=== PATIENT | male | born 1970 | race Caucasian/White ===

== ENCOUNTER 2024-10-03 19:14 | Observation (INO) ==
[2024-10-03 19:50] LABS: Hematocrit (blood only) 39.5 % (42.0-52.0); Hemoglobin 13.2 g/dl (14.0-18.0); Mean Corpuscular Hgb Conc 33.4 g/dL (32.0-36.0); Mean Corpuscular Volume 89.8 fL (80.0-100.0); Platelet Count 106 K/uL (130-400); RDW Coefficient of Variation 11.7 % (11.5-14.5); RDW Standard Deviation 38.3 fL (36.4-46.3)
[2024-10-03 20:05] LABS: Basophils # (auto) 0.01 K/uL (0.00-0.20); Basophils % (auto) 0.1 %; Eosinophils # (auto) 0.01 K/uL (0.00-0.50); Eosinophils % (auto) 0.1 %; Immature Granulocytes # (auto) 0.02 K/uL (0.01-0.20); Immature Granulocytes % (auto) 0.3 %; Lymphocytes # (auto) 0.32 K/uL (1.20-3.40); Lymphocytes % (auto) 4.4 %; Monocytes # (auto) 0.39 K/uL (0.11-0.59); Monocytes % (auto) 5.3 %; Neutrophils # (auto) 6.55 K/uL (1.40-6.50); Neutrophils % (auto) 89.8 %
[2024-10-03 20:07] LABS: Albumin Globulin Ratio 1.2 (0.9-2); Albumin Level 4.2 gm/dl (3.4-5.0); BUN Creatinine Ratio 9.5 (10-20); Bilirubin,Total 0.8 mg/dl (0.2-1.0); Calcium 9.1 mg/dl (8.6-10.3); Creatinine Clr Calc Pharmacy 90.9 ml/min; Globulin 3.5 gm/dl (2.5-4.0); Potassium 3.9 mmol/L (3.5-5.1); Total Protein 7.7 gm/dl (6.0-8.3)
[2024-10-03 20:30] LABS: Adenovirus PCR Not Detected (NotDetected); Bordetella parapertussis PCR Not Detected (NotDetected); Bordetella pertussis PCR Not Detected (NotDetected); Chlamydia pneumoniae PCR Not Detected (NotDetected); Coronavirus 229E PCR Not Detected (NotDetected); Coronavirus CoV-2 (COVID19)PCR Not Detected (NotDetected); Coronavirus HKU1 PCR Not Detected (NotDetected); Coronavirus NL63 PCR Not Detected (NotDetected); Coronavirus OC43PCR Not Detected (NotDetected); Human Metapneumovirus PCR Not Detected (NotDetected); Influenza A PCR Not Detected (NotDetected); Influenza B PCR Not Detected (NotDetected); Mycoplasma pneumoniae PCR Not Detected (NotDetected); Parainfluenza Virus 1 PCR Not Detected (NotDetected); Parainfluenza Virus 2 PCR Not Detected (NotDetected); Parainfluenza Virus 3 PCR Not Detected (NotDetected); Parainfluenza Virus 4 PCR Not Detected (NotDetected); Respiratory Syncytial VirusPCR Not Detected (NotDetected); Rhinovirus/Enterovirus PCR Not Detected (NotDetected)
--- NOTE | 2024-10-03 21:53 | Emergency Department Note ---
Impression & Plan Headache, Viral illness, Acute neck pain ED Provider Note CHIEF COMPLAINT: Flulike symptoms, headache, neck pain HISTORY OF PRESENT ILLNESS: This 54-year-old male patient presents to the emergency department via EMS for evaluation of upper respiratory viral symptoms. Patient states he was seen at [facility], and they were concerned for meningitis. He reports has been having nausea, vomiting, diarrhea since Tuesday. He states he has a stiff neck, and back pain. He reports vomiting, when drinking too much fluid at 1 time. He states he has been taking Tylenol, which eased the pain slightly, however returned. He states his children are positive for influenza, and was placed on Tamiflu with 3 doses remaining. He states symptoms resolved on Tuesday, then Tuesday returned with posterior headache and neck pain. He reports fever of 102.4 Fahrenheit prior to arrival. He reports no chest pain, shortness of breath, abdominal pain, nausea or vomiting. REVIEW OF SYSTEMS: A review of systems was performed with positives and pertinent negatives listed in the history of present illness. All other systems were reviewed and are negative. ALLERGIES: See below MEDICATIONS: See below PMH: See below PHYSICAL EXAM: VITALS: Vitals are noted on the nurse's note and reviewed by myself. Vital signs stable. GENERAL: 54-year-old male, in no acute distress, nondiaphoretic, well-developed well-nourished. SKIN: The skin was without rashes, erythema, edema, or bruising. No petechiae or purpura. HEAD: Normocephalic atraumatic. EYES: Pupils equal round and reactive to light and accommodation. Conjunctivae without injection, sclerae without icterus. Extraocular movements intact. No nystagmus present. NOSE: Patent, turbinates without inflammation or discharge. No sinus tenderness. MOUTH: Mucous membranes moist. No tonsillar hypertrophy. Pharynx without erythema or exudate. Uvula midline. Airway patent. Tongue does not deviate. NECK: Supple without nuchal rigidity. No lymphadenopathy. No thyromegaly. Cervical spine is nontender. TTP bilateral cervical paraspinous muscles. HEART: Regular rate and rhythm without murmurs gallops or rubs. LUNGS: Clear to auscultation bilaterally without wheezes, rales or rhonchi. No retractions or accessory muscle use. ABDOMEN: Positive bowel sounds x 4. Soft, nontender, without masses or organomegaly. Kiran sign negative. No guarding or rebound tenderness. MUSCULOSKELETAL: No muscle atrophy, erythema, or edema noted. Full range of motion without joint tenderness in all extremities. No tenderness to palpation. Normal gait. Strength 5/5 throughout. Kernig's and Brudzinski's sign negative. NEURO: Patient was alert and oriented to person place and time. No focal neurological deficits. MEDICAL DECISION MAKING: Patient is a 54-year-old male who arrives to the emergency department for evaluation of the above-stated complaint. The patient arrived during a time of high acuity, and high-volume. Initial workup was performed in triage including a saline lock CBC, CMP, lipase, urinalysis upper respiratory BioFire panel. CBC shows no leukocytosis, hemoglobin 13.2, hematocrit 39.5, thrombocytopenia 106. CMP unremarkable. Lipase negative. Urinalysis negative for infection. Upper respiratory BioFire panel negative. Physical examination negative for meningitis, however due to increased concern from outpatient provider, inflammatory markers and CT imaging of the head were obtained. CRP elevated of 2.79, ESR 88. Procalcitonin within normal limits. CT imaging of the head shows no evidence of acute intracranial abnormality. Patient was provided a migraine cocktail with IV fluids, Zofran, Benadryl, dexamethasone. He reported a slight reduction in symptoms, however still had neck stiffness and concern for meningitis. After speaking with the patient, it was decided a lumbar puncture would be performed by my attending physician, Dr. Mccloud to formally rule out meningitis. Please refer to Dr. Mccloud's note regarding patient consent, and procedural note. LP attempt was unsuccessful, at that time it was decided the patient would require admission, for further workup, and lumbar puncture under fluoroscopy. The patient was agreeable to this plan. I spoke with case management, who facilitated contact with the [facility] group. Dr. Chao from the [facility] physician group, agreed to accept the patient under his care for further patient treatment, and evaluation. Please refer to his documentation. DIFFERENTIAL DIAGNOSIS: Migraine headache, meningitis, sinusitis, CO exposure, ICH, SAH, infection, tumor, headache, sinus thrombosis, arterial dissection, as well as other pathologies. Continuous environmental monitoring specialist: Order was placed for continuous environmental monitoring specialist. Patient was placed on the environmental monitoring specialist. Patient was noted to be in normal sinus rhythm at an initial rate of 89 bpm. The chart was completed utilizing [employer] Speech voice recognition software. Grammatical errors, random word insertions, pronoun errors, and incomplete sentences are an occasional consequence of this system due to software limitations, ambient noise, and hardware issues. Any formal questions or concerns about the content, text, or information contained within the body of this dictation should be directly addressed to the physician for clarification. 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 Priming Operator Required: No Beliefs That Will Affect Care: None Current Living Situation: Family Feels Safe at Home: Yes Assistive Devices: Contacts Allergies Allergies Allergy/AdvReac Type Severity Reaction Status Date / Time No Known Allergies Allergy Verified 10/04/24 08:24 Home Meds Home Medications Medication Instructions Recorded Confirmed cholecalciferol (vitamin D3) 25 25 mcg PO DAILY 10/04/24 10/04/24 mcg (1,000 unit) tablet (Vitamin D3) Previous Rx's Medication Instructions Recorded cyanocobalamin (vitamin B-12) 500 500 mcg PO QAM #30 tabs 10/05/24 mcg tablet ferrous sulfate 325 mg (65 mg 325 mg PO QAM #30 tabs 10/05/24 iron) tablet,delayed release folic acid 1 mg tablet 1 mg PO QAM #30 tabs 10/05/24 Results & Data (ED) Vital Signs Vital Signs - 24 hr 10/03/24 19:22 10/03/24 21:10 10/03/24 21:10 Temperature 37.4 C Temperature Source Temporal Artery Scan Pulse Rate 107 H 89 Pulse Rate [Right Brachial] 84 Pulse Rate from SpO2 Sensor Pulse Rhythm [Right Brachial] Regular Pulse Strength [Right Brachial] Normal Respiratory Rate 18 16 Respiratory Effort / Characteristics Non-Labored Respiratory Depth Normal Respiratory Pattern Regular Blood Pressure 102/67 Blood Pressure [Right Arm] 112/69 Blood Pressure Mean 78 Blood Pressure Mean [Right Arm] 83 Blood Pressure Position [Right Arm] Lying Pulse Oximetry 95 99 Oxygen Delivery Method Room Air Room Air Sepsis Recent Fever Within 48 Hours No Sepsis New/Unexplained Change in Mental Status No Sepsis Action Taken by Nursing No Action Required 10/03/24 22:57 10/03/24 23:00 10/04/24 01:01 Temperature Temperature Source Pulse Rate 83 88 89 Pulse Rate [Right Brachial] Pulse Rate from SpO2 Sensor Pulse Rhythm [Right Brachial] Pulse Strength [Right Brachial] Respiratory Rate 16 20 Respiratory Effort / Characteristics Respiratory Depth Respiratory Pattern Blood Pressure 118/76 109/71 Blood Pressure [Right Arm] Blood Pressure Mean 87 76 Blood Pressure Mean [Right Arm] Blood Pressure Position [Right Arm] Pulse Oximetry 96 97 Oxygen Delivery Method Room Air Room Air Sepsis Recent Fever Within 48 Hours Sepsis New/Unexplained Change in Mental Status Sepsis Action Taken by Nursing 10/04/24 01:25 10/04/24 02:16 Temperature Temperature Source Pulse Rate 76 76 Pulse Rate [Right Brachial] Pulse Rate from SpO2 Sensor 77 76 Pulse Rhythm [Right Brachial] Pulse Strength [Right Brachial] Respiratory Rate 21 20 Respiratory Effort / Characteristics Respiratory Depth Respiratory Pattern Blood Pressure 108/64 94/66 L Blood Pressure [Right Arm] Blood Pressure Mean 72 73 Blood Pressure Mean [Right Arm] Blood Pressure Position [Right Arm] Pulse Oximetry 95 95 Oxygen Delivery Method Room Air Room Air Sepsis Recent Fever Within 48 Hours Sepsis New/Unexplained Change in Mental Status Sepsis Action Taken by [facility] Current Medication List: was personally reviewed by me Laboratory Data Attestation: I reviewed the patient's lab results. 10/05/24 07:54 10/05/24 07:54 Lab Results 10/03/24 Range/Units 19:33 WBC 7.30 (4.8-10.8) K/ul RBC 4.40 L (4.70-6.10) M/uL Hgb 13.2 L (14.0-18.0) g/dl Hct 39.5 L (42.0-52.0) % MCV 89.8 (80.0-100.0) fL MCH 30.0 (25.0-34.0) pg MCHC 33.4 (32.0-36.0) g/dL RDW Std Deviation 38.3 (36.4-46.3) fL RDW Coeff of Palomo 11.7 (11.5-14.5) % Plt Count 106 L (130-400) K/uL MPV 10.0 (9.4-12.4) fL Immature Gran % (Auto) 0.3 % Neut % (Auto) 89.8 % Lymph % (Auto) 4.4 % Swain % (Auto) 5.3 % Eos % (Auto) 0.1 % Baso % (Auto) 0.1 % Neut # (Auto) 6.55 H (1.40-6.50) K/uL Lymph # (Auto) 0.32 L (1.20-3.40) K/uL Swain # (Auto) 0.39 (0.11-0.59) K/uL Eos # (Auto) 0.01 (0.00-0.50) K/uL Baso # (Auto) 0.01 (0.00-0.20) K/uL Immature Gran # (Auto) 0.02 (0.01-0.20) K/uL ESR 88 H (0-20) mm/hr Sodium 134 L (136-145) mmol/L Potassium 3.9 (3.5-5.1) mmol/L Chloride 100 (98-107) mmol/L Carbon Dioxide 27 (21-32) mmol/L Anion Gap 7 (3-11) BUN 10 (6-23) mg/dl Creatinine 1.05 (0.6-1.4) mg/dl Est Cr Clr Drug Dosing 90.9 ml/min eGFR 84.35 BUN/Creatinine Ratio 9.5 L (10-20) Glucose 123 H (70-99(Fasting)) mg/dl Estimat Average Glucose 114 mg/dl Hemoglobin A1c 5.6 (4.5-5.6) % Calcium 9.1 (8.6-10.3) mg/dl Total Bilirubin 0.8 (0.2-1.0) mg/dl AST 19 (13-39) U/L ALT 20 (7-52) U/L Alkaline Phosphatase 48 (34-104) U/L C-Reactive Protein 2.79 H (0-0.5) mg/dl Total Protein 7.7 (6.0-8.3) gm/dl Albumin 4.2 (3.4-5.0) gm/dl Globulin 3.5 (2.5-4.0) gm/dl Albumin/Globulin Ratio 1.2 (0.9-2) Lipase 35 (11-82) U/L Procalcitonin 0.11 (0-0.5) ng/ml Adenovirus (PCR) Not Detected (NotDetected) B. pertussis DNA (PCR) Not Detected (NotDetected) B.parapertussis DNA PCR Not Detected (NotDetected) Lyme Disease Screen Negative (Negative) C. pneumoniae DNA (PCR) Not Detected (NotDetected) Coronavirus OC43 (PCR) Not Detected (NotDetected) Coronavirus HKU1 (PCR) Not Detected (NotDetected) Coronavirus 229E (PCR) Not Detected (NotDetected) SARS-CoV-2 (PCR) Not Detected (NotDetected) Coronavirus NL63 (PCR) Not Detected (NotDetected) Human Metapneumovir PCR Not Detected (NotDetected) Influenza Type A (PCR) Not Detected (NotDetected) Influenza Type B (PCR) Not Detected (NotDetected) M. pneumoniae (PCR) Not Detected (NotDetected) Parainfluenza 1 (PCR) Not Detected (NotDetected) Parainfluenza 2 (PCR) Not Detected (NotDetected) Parainfluenza 3 (PCR) Not Detected (NotDetected) Parainfluenza 4 (PCR) Not Detected (NotDetected) RSV (PCR) Not Detected (NotDetected) Entero/Rhino (PCR) Not Detected (NotDetected) Administered Medications Discontinued Medications Cyanocobalamin (Cyanocobalamin (B-12) 500 Mcg Tablet) 500 mcg PO [facility] Stop: 11/03/24 11:59 Last Admin: 10/05/24 09:03 Dose: 500 mcg Documented By: Admin: 10/04/24 12:31 Dose: 500 mcg Documented By: TERESO Dexamethasone (Dexamethasone Sod Inj 4 Mg/Ml Vial) 10 mg IV NOW STA Stop: 10/03/24 21:54 Last Admin: 10/03/24 22:38 Dose: 10 mg Documented By: SHONDA Diphenhydramine HCl (Diphenhydramine 50 Mg/Ml Vial) 25 mg IV NOW STA Stop: 10/03/24 21:54 Last Admin: 10/03/24 22:38 Dose: 25 mg Documented By: SHONDA Ferrous Sulfate (Ferrous Sulfate 325 Mg Tab) 325 mg PO [facility] Stop: 11/04/24 08:59 Last Admin: 10/05/24 09:03 Dose: 325 mg Documented By: SHERMAN Folic Acid (Folic Acid 1 Mg Tab) [facility] Stop: 11/03/24 11:59 Last Admin: 10/05/24 09:03 Dose: 1 mg Documented By: Admin: 10/04/24 12:31 Dose: 1 mg Documented By: TERESO Sodium Chloride (Nss) 1,000 mls @ 999 mls/hr IV .[id number] ONE Stop: 10/03/24 22:39 Last Infusion: 10/04/24 02:11 Dose: Infused Documented By: Admin: 10/03/24 22:38 Dose: 999 mls/hr Documented By: SHONDA Acetaminophen (Ofirmev) 1,000 mg in 100 mls @ 400 mls/hr IV NOW STA Stop: 10/03/24 21:53 Last Infusion: 10/04/24 02:10 Dose: Infused Documented By: Admin: 10/03/24 22:38 Dose: 400 mls/hr Documented By: SHONDA Sodium Chloride (Nss) 1,000 mls @ 75 mls/hr IV .[id number] ONE Stop: 10/04/24 15:43 Last Infusion: 10/04/24 16:53 Dose: Infused Documented By: Admin: 10/04/24 03:33 Dose: 75 mls/hr Documented By: PABLITO Sodium Chloride (Nss) 1,000 mls @ 75 mls/hr IV .[id number] ONE Stop: 10/05/24 09:42 Last Infusion: 10/05/24 10:54 Dose: Infused Documented By: Admin: 10/04/24 21:34 Dose: 75 mls/hr Documented By: FERMÍN Ioversol (Optiray 320 125ml) 125 ml IV ONCE ONE Stop: 10/04/24 03:00 Last Admin: 10/04/24 03:00 Dose: 118 ml Documented By: CLAUDIO Ketorolac Tromethamine (Ketorolac Tromethamine 15 Mg/Ml Vial) 15 mg IV NOW ONE Stop: 10/04/24 02:20 Last Admin: 10/04/24 03:18 Dose: Not Given Documented By: PABLITO Lidocaine (Lidocaine/Epineph/Tetracaine 1 Ea Syr) 1 each EXT NOW STA Stop: 10/03/24 23:31 Last Admin: 10/04/24 00:03 Dose: Not Given Documented By: PABLITO Lidocaine HCl (Lidocaine 1% Local 20 Ml Vial) 10 ml INFIL NOW ONE Stop: 10/03/24 23:30 Last Admin: 10/04/24 00:03 Dose: Not Given Documented By: PABLITO Miscellaneous Information (Patient's Allergy Info Needs Entered) 1 each N/A NOW STA Stop: 10/03/24 19:23 Last Admin: 10/04/24 03:33 Dose: 1 each Documented By: PABLITO Ondansetron HCl (Ondansetron Inj 2 Mg/Ml 2 Ml Vial) 4 mg IV NOW STA Stop: 10/03/24 21:54 Last Admin: 10/03/24 22:38 Dose: 4 mg Documented By: SHONDA Potassium Phosphate (Pot Phosphate Monobasic W/ Sod Tab) 2 tab PO QID GAYLE Stop: 10/05/24 17:01 Last Admin: 10/05/24 12:57 Dose: 2 tab Documented By: SHERMAN Vitamin D (Cholecalciferol 25 Mcg (1000 Units) Tab) 25 mcg PO DAILY [facility] Stop: 11/04/24 08:59 Last Admin: 10/05/24 09:03 Dose: 25 mcg Documented By: SHERMAN Imaging Data Attestation: I personally reviewed and interpreted this imaging study as follows: Radiologist's Impression: Head CT 10/03/24 23:21 Exam(s): CT HEAD Without Contrast EXAM: CT Head Without Intravenous Contrast CLINICAL HISTORY: Reason for exam: HEADACHE. TECHNIQUE: Axial computed tomography images of the head/brain without intravenous contrast. CTDI is 38.38 mGy and DLP is 625.8 mGy-cm. Automated exposure control was utilized for the study. A dose lowering technique was utilized adhering to the principles of ALARA. COMPARISON: No relevant prior studies available. FINDINGS: Brain: Unremarkable. No hemorrhage. No significant white matter disease. No edema. Ventricles: Unremarkable. No ventriculomegaly. Bones/joints: Unremarkable. No acute fracture. Soft tissues: Unremarkable. Sinuses: Unremarkable as visualized. No acute sinusitis. Mastoid air cells: Unremarkable as visualized. No mastoid effusion. IMPRESSION: No evidence of acute intracranial abnormality. Electronically signed by: Manuel Bradley MD 10/03/24 23:55 PM Discharge Plan Visit Data Chief Complaint: Flu Like Symptoms Stated Complaint: N/V/D, BODY ACHES ED Provider: Kb Mccloud ED Midlevel Provider: Pam Dinero Discharge Problem: Headache, Viral illness, Acute neck pain Patient Disposition: Admitted As Inpatient Discharge Instructions Interventions: ED Discharge Assessment Last Done: 10/04/24 04:15
[2024-10-03] MEDS: SODIUM CHLORIDE 0.9% 1,000 ML IV ONE (22:38)
[2024-10-03] MEDS: DEXAMETHASONE SOD INJ 4 MG/ML VIAL IV STA (22:38)
[2024-10-03] MEDS: ACETAMINOPHEN 1,000 MG/100 ML VIAL IV STA (22:38)
[2024-10-03] MEDS: ONDANSETRON INJ 2 MG/ML 2 ML VIAL IV STA (22:38)
[2024-10-03] MEDS: diphenhydrAMINE 50 MG/ML VIAL IV STA (22:38)
[2024-10-03 23:42] LABS: C Reactive Protein 2.79 mg/dl (0-0.5)
--- NOTE | 2024-10-03 23:56 | CT Scan Report ---
Exam(s): CT HEAD Without Contrast EXAM: CT Head Without Intravenous Contrast CLINICAL HISTORY: Reason for exam: HEADACHE. TECHNIQUE: Axial computed tomography images of the head/brain without intravenous contrast. CTDI is 38.38 mGy and DLP is 625.8 mGy-cm. Automated exposure control was utilized for the study. A dose lowering technique was utilized adhering to the principles of ALARA. COMPARISON: No relevant prior studies available. FINDINGS: Brain: Unremarkable. No hemorrhage. No significant white matter disease. No edema. Ventricles: Unremarkable. No ventriculomegaly. Bones/joints: Unremarkable. No acute fracture. Soft tissues: Unremarkable. Sinuses: Unremarkable as visualized. No acute sinusitis. Mastoid air cells: Unremarkable as visualized. No mastoid effusion. IMPRESSION: No evidence of acute intracranial abnormality. Electronically signed by: Manuel Bradley MD 10/03/24 23:55 PM
[2024-10-04] MEDS: LIDOCAINE 1% LOCAL 20 ML VIAL INFIL ONE (00:03)
[2024-10-04] MEDS: LIDOCAINE/EPINEPH/TETRACAINE 1 EA SYR EXT STA (00:03)
--- NOTE | 2024-10-04 02:19 | History & Physical Report ---
Date of Service October 04, 2024 Assessment & Plan (1) Headache: Plan: Headache and neck pain symptoms in the setting of a viral URTI symptoms and elevated inflammatory markers Rule out meningitis No sepsis for now Unsuccessful spinal tap attempt at the ER New onset anemia, thrombocytopenia secondary to illness Hyperglycemia rule out DM ADD, anxiety/mood disorder, stable off maintenance medications OBS Admit to medical telemetry IR guided diagnostic LP Anemia workup Check hemoglobin A1c DVT prophylaxis. SCDs re: thrombocytopenia Full code Text document was generated using Tagito voice recognition software. It may contain grammatical or spelling errors. Kindly contact undersigned for clarification of any documentation item in question. History of Present Illness Primary Care Provider: Mery Horn [facility] Practice History obtained from patient and records. Medical history significant for ADD, anxiety/mood disorder. Patient has been ill since last week. Flulike symptoms later followed by dry cough, fatigue, achy chest pain with SOB. Sick kids at home tested positive for flu A. Achy headache symptoms and neck pain. Denies abdominal pain/black/bloody stools/hematuria. No trauma. No known exposure to sick animals/dairy cows/raw milk/wild birds/poultry/agricultural fair attendance/recent travel to an area of known H5N1 animal outbreaks. Patient prescribed outpatient course of Tamiflu for presumptive flu by outpatient teleprovider. Symptoms initially better but worsened yesterday. Patient seen at urgent care center. Directed to ER for evaluation Unsuccessful spinal tap attempt at the ER. 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 Allergies Allergy/AdvReac Type Severity Reaction Status Date / Time No Known Allergies Allergy Verified 10/04/24 08:24 Home Medications Medication Instructions Recorded Confirmed Type cholecalciferol (vitamin D3) 25 25 mcg PO DAILY 10/04/24 10/04/24 History mcg (1,000 unit) tablet (Vitamin D3) Past Med/Surg History Problem List (Updated 10/04/24 @ 06:[address]) Acute neck pain (Acute) Viral illness (Acute) Headache (Acute) Social History Smoking Status: Never smoker Preferred Language: Malaysian Feels Safe at Home: Yes Review of Systems Review of Systems: As per HPI, all other systems reviewed and negative Physical Exam Physical Exam: GENERAL: Comfortable, pleasant, no respiratory distress SKIN: Normal color, warm HEENT: Partial alopecia, pink palpebral conjunctivae, no ptosis, dry buccal mucosa NECK : Supple, minimal posterior cervical tenderness, no nuchal rigidity CHEST : Decreased breath sounds, no tenderness HEART : RRR, no obvious murmurs ABDOMEN: Some distention, nontender EXTREMITIES : No LE swelling/tenderness, palpable pulses, no other conspicuous deformities noted NEUROLOGIC : Coherent, no facial asymmetry, no other gross focality Results & Data Results & Data Vital Signs (Past 12 Hours) Vital Signs Temp Pulse Pulse Resp BP BP Pulse Ox 10/04/24 01:01 89 10/03/24 23:00 88 20 109/71 97 10/03/24 22:57 83 16 118/76 96 10/03/24 21:10 84 16 112/69 99 10/03/24 21:10 89 10/03/24 19:22 37.4 C 107 H 18 102/67 95 O2 Del Method 10/04/24 01:01 10/03/24 23:00 Room Air 10/03/24 22:57 Room Air 10/03/24 21:10 Room Air 10/03/24 21:10 10/03/24 19:22 Room Air Laboratory Results Laboratory Results WBC 7.30 K/ul (4.8-10.8) 10/03/24 19:33 RBC 4.40 M/uL (4.70-6.10) L 10/03/24 19:33 Hgb 13.2 g/dl (14.0-18.0) L 10/03/24 19:33 Hct 39.5 % (42.0-52.0) L 10/03/24 19:33 MCV 89.8 fL (80.0-100.0) 10/03/24 19:33 MCH 30.0 pg (25.0-34.0) 10/03/24 19:33 MCHC 33.4 g/dL (32.0-36.0) 10/03/24 19:33 RDW Std Deviation 38.3 fL (36.4-46.3) 10/03/24 19:33 RDW Coeff of Palomo 11.7 % (11.5-14.5) 10/03/24 Plt Count 106 K/uL (130-400) L 10/03/24 MPV 10.0 fL (9.4-12.4) 10/03/24: Immature Gran % (Auto) 0.3 % 10/03/24: Neut % (Auto) 89.8 % 10/03/24: Lymph % (Auto) 4.4 % 10/03/24: [place] % (Auto) 5.3 % 10/03/24: Eos % (Auto) 0.1 % 10/03/24: Baso % (Auto) 0.1 % 10/03/24 Neut # (Auto) 6.55 K/uL (1.40-6.50) H 10/03/24 Lymph # (Auto) 0.32 K/uL (1.20-3.40) L 10/03/24 [place] # (Auto) 0.39 K/uL (0.11-0.59) 10/03/24 Eos # (Auto) 0.01 K/uL (0.00-0.50) 10/03/24 Baso # (Auto) 0.01 K/uL (0.00-0.20) 10/03/24 Immature Gran # (Auto) 0.02 K/uL (0.01-0.20) 10/03/24 ESR 88 mm/hr (0-20) H 10/03/24 Sodium 134 mmol/L (136-145) L 10/03/24 Potassium 3.9 mmol/L (3.5-5.1) 10/03/24 Chloride 100 mmol/L (98-107) 10/03/24 Carbon Dioxide 27 mmol/L (21-32) 10/03/24 Anion Gap 7 (3-11) 10/03/24 BUN 10 mg/dl (6-23) 10/03/24 Creatinine 1.05 mg/dl (0.6-1.4) 10/03/24 Est Cr Clr Drug Dosing 90.9 ml/min 10/03/24: eGFR 84.35 10/03/24 19: BUN/Creatinine Ratio 9.5 (10-20) L 10/03/24: Glucose 123 mg/dl (70-99(Fasting)) H 10/03/24: Calcium 9.1 mg/dl (8.6-10.3) 10/03/24: Total Bilirubin 0.8 mg/dl (0.2-1.0) 10/03/24: AST 19 U/L (13-39) 10/03/24: ALT 20 U/L (7-52) 10/03/24: Alkaline Phosphatase 48 U/L (34-104) 10/03/24: C-Reactive Protein 2.79 mg/dl (0-0.5) H 10/03/24: Total Protein 7.7 gm/dl (6.0-8.3) 10/03/24: Albumin 4.2 gm/dl (3.4-5.0) 10/03/24: Globulin 3.5 gm/dl (2.5-4.0) 10/03/24: Albumin/Globulin Ratio 1.2 (0.9-2) 10/03/24: Lipase 35 U/L (11-82) 10/03/24: Procalcitonin 0.11 ng/ml (0-0.5) 10/03/24: Adenovirus (PCR) Not Detected (NotDetected) 10/03/24: B. pertussis DNA (PCR) Not Detected (NotDetected) 10/03/24: B.parapertussis DNA PCR Not Detected (NotDetected) 10/03/24: C. pneumoniae DNA (PCR) Not Detected (NotDetected) 10/03/24: Coronavirus OC43 (PCR) Not Detected (NotDetected) 10/03/24: Coronavirus HKU1 (PCR) Not Detected (NotDetected) 10/03/24: Coronavirus 229E (PCR) Not Detected (NotDetected) 10/03/24: SARS-CoV-2 (PCR) Not Detected (NotDetected) 10/03/24 19:33 Coronavirus NL63 (PCR) Not Detected (NotDetected) 10/03/24 19:33 Human Metapneumovir PCR Not Detected (NotDetected) 10/03/24 19:33 Influenza Type A (PCR) Not Detected (NotDetected) 10/03/24 19:33 Influenza Type B (PCR) Not Detected (NotDetected) 10/03/24 19:33 M. pneumoniae (PCR) Not Detected (NotDetected) 10/03/24 19:33 Parainfluenza 1 (PCR) Not Detected (NotDetected) 10/03/24 19:33 Parainfluenza 2 (PCR) Not Detected (NotDetected) 10/03/24 19:33 Parainfluenza 3 (PCR) Not Detected (NotDetected) 10/03/24 19:33 Parainfluenza 4 (PCR) Not Detected (NotDetected) 10/03/24 19:33 RSV (PCR) Not Detected (NotDetected) 10/03/24 19:33 Entero/Rhino (PCR) Not Detected (NotDetected) 10/03/24 19:[address] 10/03/24 23:21 Exam(s): CT HEAD Without Contrast EXAM: CT Head Without Intravenous Contrast CLINICAL HISTORY: Reason for exam: HEADACHE. TECHNIQUE: Axial computed tomography images of the head/brain without intravenous contrast. CTDI is 38.38 mGy and DLP is 625.8 mGy-cm. Automated exposure control was utilized for the study. A dose lowering technique was utilized adhering to the principles of ALARA. COMPARISON: No relevant prior studies available. FINDINGS: Brain: Unremarkable. No hemorrhage. No significant white matter disease. No edema. Ventricles: Unremarkable. No ventriculomegaly. Bones/joints: Unremarkable. No acute fracture. Soft tissues: Unremarkable. Sinuses: Unremarkable as visualized. No acute sinusitis. Mastoid air cells: Unremarkable as visualized. No mastoid effusion. IMPRESSION: No evidence of acute intracranial abnormality. Electronically signed by: Manuel Bradley MD 10/03/24 23:[address] chest 1. No evidence of pulmonary embolism or pulmonary disease. 2. Small pulmonary cysts/bulla is noted involving left lower lobe
[2024-10-04] MEDS ORDERED: KETOROLAC TROMETHAMINE 15 MG/ML VIAL IV PRN (02:25)
[2024-10-04] MEDS ORDERED: ACETAMINOPHEN 325 MG TAB PO PRN (02:25)
[2024-10-04] MEDS ORDERED: LORazepam 0.5 MG TAB PO PRN (02:25)
[2024-10-04] MEDS ORDERED: PROMETHAZINE 6.25 MG/50.25 ML BAG IV PRN (02:25)
[2024-10-04] MEDS ORDERED: oxyCODONE HCL IR 5 MG TAB (IMMEDIATE RELEASE) PO PRN (02:25)
[2024-10-04] MEDS: OPTIRAY 320 125ml IV ONE (03:00)
[2024-10-04] MEDS: KETOROLAC TROMETHAMINE 15 MG/ML VIAL IV ONE (03:18)
[2024-10-04 03:27] LABS: Appearance Urine Clear (Clear); Bilirubin Urine Negative (Negative); Blood Urine Negative (Negative); Color Urine Yellow; Glucose Urine UA Negative (Negative); Ketones Urine Trace (Negative); Leukocyte Esterase Urine Negative (Negative); Nitrite Urine Negative (Negative); Protein Urine Negative (Negative); Urobilinogen Urine Negative (Negative)
--- NOTE | 2024-10-04 03:32 | CT Scan Report ---
EXAM: CT angio chest PE protocol CLINICAL HISTORY: cp TECHNIQUE: Contiguous axial images were obtained from the neck base through the upper abdomen following intravenous administration of iodinated contrast material. Angiographic images were processed, 3D MIP images were acquired for interpretation. If IV contrast material had not been administered, the likelihood of detecting abnormalities relevant to the patient's condition would have been substantially decreased. Coronal and sagittal 3-D MIPs were likewise performed and indicated to increase the sensitivity of detectin diffuse clinically relevant pathology. CT scan was performed according to ALARA (as low as reasonable achievable). COMPARISON: None. FINDINGS: Small pulmonary cysts/bulla is noted involving left lower lobe Adequate contrast bolus without evidence of pulmonary embolism. The central airways are patent. The lungs are clear. No pleural effusion. The heart, aorta, and pulmonary arteries are of normal size and configuration. There are no appreciable coronary artery and aortic atherosclerotic calcifications. No pericardial effusion is identified. The thyroid is unremarkable. No mediastinal, hilar, or axillary lymphadenopathy is noted. No suspicious lytic or sclerotic osseous lesions are identified. IMPRESSION: 1. No evidence of pulmonary embolism or pulmonary disease. 2. Small pulmonary cysts/bulla is noted involving left lower lobe Electronically signed by Dmitriy Howard 10-04-2024 03:31 AM
[2024-10-04] MEDS: Patient's ALLERGY Info needs ENTERED STA (03:33)
[2024-10-04] MEDS: SODIUM CHLORIDE 0.9% 1,000 ML IV ONE ×2 (03:33→21:34)
[2024-10-04 03:55] LABS: BUN Creatinine Ratio 10.6 (10-20); Calcium 8.4 mg/dl (8.6-10.3); Creatinine Clr Calc Pharmacy 101.5 ml/min; Potassium 4.2 mmol/L (3.5-5.1)
[2024-10-04 05:09] LABS: Hematocrit (blood only) 35.8 % (42.0-52.0); Hemoglobin 12.2 g/dl (14.0-18.0); Mean Corpuscular Hgb Conc 34.1 g/dL (32.0-36.0); Mean Corpuscular Volume 90.9 fL (80.0-100.0); Mean Platelet Volume 11.1 fL (9.4-12.4); Platelet Count 155 K/uL (130-400); RDW Coefficient of Variation 11.6 % (11.5-14.5); RDW Standard Deviation 39.1 fL (36.4-46.3); Red Blood Count 3.94 M/uL (4.70-6.10); Reticulocyte % 0.76 % (0.50-2.00); White Blood Count 5.09 K/ul (4.8-10.8)
[2024-10-04 05:14] LABS: Partial Thromboplastin Time 28 Seconds (21-31)
--- OUTSIDE RECORDS SUMMARY | 2024-10-04 05:33 | External Medical Summary | Summary of Care ---
Author Name Unknown Organization [facility] Address [address] [place] [address] Phone [phone] Care Team Providers Care Asset Recovery Specialist Name Role Phone Unavailable Primary Care Provider Unavailabl e Reason for Visit * Reason Comments Fever Neck Pain Other Throat tightness Back Pain Encounter Details Date Type Department Care Team (Latest Contact Info) Description 10/03/2024 7:00 PM EST Convenient Care Visit [facility] [address] [place] [address] Rachele Beyer CRNP [address] [place] [address] Fever, unspecified fever cause*; Influenza; Brown-colored urine; Neck pain; Neck stiffness Allergies Active Allergy Reactions Criticality Noted Date Comments Pollen Low 01/24/2023 Nasal congestion, burning eyes documented as of this encounter (statuses as of 10/04/2024) Medications Triamcinolone Acetonide 0.1 % External Cream (Aristocort)Tracie cations:Intrinsi c atopic dermatitis APPLY TO AFFECTED AREA TWICE A DAY 60 g 5 1 Active Sildenafil Citrate 20 MG Oral Tablet (Revatio)Indicat ions:ED (erectile dysfunction) of organic origin TAKE 3 TABLETS BY MOUTH DAILY NEEDED FOR ERECTILE DYSFUNCTION 60 Tablet 12/10/2022 2:10 PM EDT 3 Active Vitamin D3 10 MCG (400 UNIT) Oral Tablet (Cholecalciferol ) Take 1 Tablet by mouth in the morning. Active B Complex 100 TR Oral Tablet Extended Release Take by mouth. Active Collagen Hydrolysate Powder Use as directed. 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 Social phobia 04/15/2005 documented as of this encounter (statuses as of 10/04/2024) Resolved Problems Problem Noted Date Diagnosed Date Resolved Date ADVANCE DIRECTIVE INFORMATION 01/24/2006 06/18/2024 Overview (01/24/2006): No, Advance Directive brochure given to patient. documented as of this encounter (statuses as of 10/04/2024) Immunizations Name Administration Dates Next Due COVID-19 mRNA, LNP-s, No Pre serve, 2-Dose Series ([employer]) 07/08/2021,11/13/2020,10/29/2020 HEPATITIS B VACCINE, RECOMB, 20 MCG/ML, ADULT (HEPLISAV-B) 01/24/2023 Seasonal Influenza Vac., MDV , IM, 0.5 mL (Fluzone) 06/08/2014 Seasonal Influenza, PF, 6 M & above, IM , (FluLaval or Fluzone) 05/28/2020,08/31/2017 Seasonal Influenza, Quadriva lent, No Preserve, IM 05/28/2021 TDAP (age 10 and older)(Boostrix) 08/29/2020 TDAP, Age 7 and older, IM (Adacel) 02/17/2009 Zoster Vaccine Recombinant (Shingrix) 12/20/2020 ,08/29/2020 documented as of this encounter Social History Tobacco Use Types Packs/Day Years Used Date Smoking Tobacco: Never Passive Smoke Exposure: Past Smokeless Tobacco: Never Tobacco Cessation:Counseling Given: Not Answered Alcohol Use Standard Drinks/Week Comments Not Currently 0 (1 standard drink = 0.6 oz pur e alcohol) socially PHQ-2 Answer Date Recorded PHQ-2 Score 0 08/28/2019 Hunger Vital Sign Answer Date Recorded Within the past 12 months, y ou worried that your food would run out before you got the money to buy more. Never true 01/25/20 23 Within the past 12 months, t he food you bought just didn't last and you didn't have money to get more. Never true 01/24/2023 Sex and Gender Information Value Date Recorded Sex Assigned at Male 01/24/2023 7:39 AM EDT Legal Sex Male 5:27 AM EST Gender Identity Male 01/24/2023 7:39 AM EDT Sexual Orientation Straight 01/24/2023 7: 39 AM EDT Occupation Industry Job Start Date Job End Date [employer] [facility] [employer] Not on file Not on file Not on f ile documented as of this encounter Last Filed Vital Signs Vital Sign Reading Time Taken Comments Blood Pressure 103/68 10/03/2024 6:31 PM EST Pulse 76 10/03/2024 6:31 PM EST Temperature 39.1 C (102.4 F) 10/03/2024 6:[address] Respiratory Rate 28 10/03/2024 6:31 PM EST Oxygen Saturation 100% 10/03/2024 6:31 PM EST Inhaled Oxygen Concentration - - Weight 84.4 kg (186 lb) 10/03/2024 6:31 PM EST Height - - Body Mass Index 24.26 01/24/2023 7:49 AM EDT documented in this encounter Progress Notes * Ross Mabry PA-C - 10/03/2024 6:49 PM EST Subjective Ángel Amaya JrLacey is a 54 year old male that presents for Fever, Neck Pain, Other (Throat tightness),and Back Pain He state that toward the beginning of last week his kids got sick. Tested positive for Flu A. He started to get sick around 5-6 days ago. He started to take Tamiflu Tuesday morning (4 days ago). He has 3 days left. He has been having intermittent f/s/ch, malaise, fatigue, body aches, mild sinus, mild dry cough. He had very dark brown urine early in the course, but as he increased his water intake, urine cleared. He was feeling better through this morning, but then after lunch symptoms returned and much worse. His urine is also becoming darker brown again. Of note, he has a h/o R kidney injury from a snowboarding accident in 2000. He notes that he is having [id number]-[id number] mid and low back pain "in my kidney area," and severeneck pain and stiffness. He notes difficulty moving neck in all ROM. He feels like throat is tight and sore anteriorly as well. Notes the pain in back of neck radiates up into skull, worse with movement. Denies rash, angioedema. He reports he has had mild wheezing, mild sob, mild dry cough. Denies sensation of tongue getting too big for mouth or difficulty handling secretions. He has had diarrhea, nausea, but no vomiting. He is feeling very weak and like he might pass out. Objective BP 103/68 | Pulse 76 | Temp (!) 39.1 C (102.4 F) (Tympanic) | Resp 28 | Wt 84.4 kg (186 lb) | SpO2 100% | BMI 24.26 kg/m | BSA 2.09 m Body mass index is 24.26 kg/m. BP Readings from Last 3 Encounters: 10/03/24 103/68 01/24/23 104/58 09/11/21 98/60 Wt Readings from Last 3 Encounters: 10/03/24 84.4 kg (186 lb) 01/24/23 84.6 kg (186 lb 9.6 oz) 09/11/21 83.5 kg (184 lb 2 oz) Physical Exam Vitals and nursing note reviewed. Constitutional: General: He is not in acute distress. Appearance: Normal appearance. He is ill-appearing. He is not toxic-appearing or diaphoretic. HENT: Head: Normocephalic and atraumatic. Right Ear: External ear normal. Left Ear: External ear normal. Nose: Nose normal. No congestion or rhinorrhea. Mouth/Throat: Mouth: Mucous membranes are moist. Pharynx: Oropharynx is clear. Posterior oropharyngeal erythema present. No oropharyngeal exudate. Eyes: General: No scleral icterus. Extraocular Movements: Extraocular movements intact. Conjunctiva/sclera: Conjunctivae normal. Pupils: Pupils are equal, round, and reactive to light. Neck: Thyroid: No thyroid mass. Vascular: No carotid bruit or JVD. Trachea: Trachea normal. Comments: Difficult to move chin to chest Cardiovascular: Rate and Rhythm: Regular rhythm. Tachycardia present. Heart sounds: No murmur heard. No friction rub. No gallop. Pulmonary: Effort: Pulmonary effort is normal. No respiratory distress. Breath sounds: No wheezing, rhonchi or rales. Chest: Chest wall: No tenderness. Abdominal: General: Abdomen is flat. Bowel sounds are normal. There is no distension. Palpations: Abdomen is soft. Tenderness: There is no abdominal tenderness. There is no guarding or rebound. Musculoskeletal: General: No swelling. Cervical back: Rigidity and tenderness present. No edema or erythema. Pain with movement present. No spinous process tenderness. Decreased range of motion. Right lower leg: No edema. Left lower leg: No edema. Lymphadenopathy: Cervical: No cervical adenopathy. Right cervical: No superficial, deep or posterior cervical adenopathy. Left cervical: No superficial, deep or posterior cervical adenopathy. Skin: General: Skin is warm and dry. Capillary Refill: Capillary refill takes less than 2 seconds. Coloration: Skin is not jaundiced. Neurological: General: No focal deficit present. Mental Status: He is alert and oriented to person, place, and time. Psychiatric: Mood and Affect: Mood normal. Behavior: Behavior normal. Thought Content: Thought content normal. Judgment: Judgment normal. Assessment and plan Fever, unspecified fever cause (Primary) - Acetaminophen (Tylenol) tab 975 mg Influenza Brown-colored urine Neck pain Neck stiffness Ddx includes, but not limited to: Patient was improving, now worsening, with fever, marked weakness, marked neck and back pain with neck stiffness, and intermittent brown urine. Meningitis, mono, flu, PNA, CKD/kidney failure, Pyelo, UTI, Azotemia, etc. Needs stat imaging and management at ED Recommend EMS transfer. EMS called, arrived, care transferred. Follow up To ED via EMS The above was discussed and understanding was expressed. Ross Mabry PA-C documented in this encounter Nursing Notes * Augustina Dunn LPN - 10/03/2024 6:49 PM EST Pt presents to clinic today with 2nd to last day of tamiflu with c/o neck pain throat tightness, chest tightness, back pain fever. Evaluated by provider documented in this encounter Plan of Treatment Scheduled Procedures Name Priority Associated Diagnoses Date/Ti me COLONOSCOPY FLEXIBLE PROXIMAL DIAGNOSTIC Recall Screen for colon cancer Health Maintenance Due Date Last Done Comments HIV Screening 1985 Hepatitis C Screening 02/15/1988 Cologuard 2015 Fecal Occult Blood Test 2015 Sigmoidoscopy 2015 Pneumococcal Vaccine: 50+ Years (1 of 1 - PCV) 02/15/2020 Depression Screening 08/28/2020 08/28/2019 Hepatitis B Vaccine (2 of 2 - CpG 2-dose series) 02/21/2023 01/24/2023 COVID-19 Vaccine ( - season) 2024 07/08/2021, 11/13/2020, 10/29/2020 Influenza Vaccine (FLU shot) (#1) 2024 05/28/2021, 05/28/2020, 06/01/2019, Additional history exists Lipid Panel 08/28/2024 08/28/2019 DTap/Tdap Vaccines (3 - Td or Tdap) 08/29/2030 08/29/2020, 02/17/2009 Colonoscopy 10/24/2030 10/24/2020, 10/24/2020 Colorectal Cancer Screening 10/24/2030 Zoster Vaccines Completed 12/20/2020, 08/29/2020 HPV (Gardasil) Vaccine Aged Out No lo nger eligible based on patient's age to complete this topic MENINGOCOCCAL (MENACTRA/MENVEO) Aged Out No longer eligible based on patient's age to complete this topic Meningitis B Vaccine (Bexsero/Trumemba) Aged Out No longer eligible based on patient's age to complete this topic documented as of this encounter Medical Devices Not on filedocumented as of this encounter Visit Diagnoses Diagnosis Fever, unspecified fever cause- Primary Influenza Influenza with other respiratory manifestations Brown-colored urine Neck pain Cervicalgia Neck stiffness Torticollis, unspecified documented in this encounter Administered Medications Inactive Administered Medications - up to 3 most recent administrations Medication Order MAR Action Action Date Dose Rate Site Acetaminophen (Tylenol) tab 975 mg 975 mg, Oral, ONCE, On Tue10/03/24 at 1915, For 1 dose, Maximum of 4 grams (4000 mg) per day.Indications:Fever, unspecified fever cause Given 10/03/2024 6:47 PM EST 975 mg Other-Specify documented in this encounter
[2024-10-04 05:42] LABS: Basophils # (auto) 0.01 K/uL (0.00-0.20); Basophils % (auto) 0.2 %; Lymphocytes # (auto) 0.35 K/uL (1.20-3.40); Lymphocytes % (auto) 6.9 %; Monocytes # (auto) 0.11 K/uL (0.11-0.59); Monocytes % (auto) 2.2 %; Neutrophils # (auto) 4.62 K/uL (1.40-6.50); Neutrophils % (auto) 90.7 %
[2024-10-04 07:56] LABS: Folate (Folic Acid),Ser orPlas 16.36 ng/ml (>5.38)
[2024-10-04 09:08] LABS: Estimated Average Glucose 114 mg/dl; Hemoglobin A1C 5.6 % (4.5-5.6)
--- NOTE | 2024-10-04 11:51 | Communication Note ---
Date of Service: October 04, 2024 Patient was seen and examined at bedside. 54-year-old male with PMH of ADD, anxiety/mood disorder who has been feeling ill since last week likely from flu [kids at home sick with flu A] who was having gradual improvement in his symptoms until morning of 10/03, went to work and had achy headache at the back, neck ache, upper back pain associated with a fever of 102.4 F in the evening and he decided to present to Urgent care who directed him to the ED for further evaluation. He underwent unsuccessful spinal tap attempt at ED. He also reported on and off diarrhea for last 1 week. Denies any exposure to sick animals/cows/raw milk/wild birds/poultry/agricultural fair attendance. 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 He is being managed for the following: Headache: Headache and neck pain symptoms in the setting of a viral URTI symptoms and elevated inflammatory markers Admitting WBC wnl, ESR 88, CRP 2.79, Procal neg. Rule out meningitis, plan for LP today. No sepsis for now, no antibiotic since admission and pt reports significant improvement in his headache/neck ache/backache problem; hence will continue to monitor off of antibiotic as no fever and symptoms improving on its own. Pt denies problem w/ vision. 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 c/w supportive care. New onset anemia: OP Hb of 15.2 in 2009 w/ MCV of 84. Hb 12-13 this admission. MCV 90. Iron 24, transferring 175, Folate 16.3, B12 268. Will start him on folate, b12 and iron supplement. Repeat labs in 3 months. Recommend colonoscopy upon dc. 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 Thrombocytopenia: secondary to illness, improving. Hyperglycemia, likely iso acute stress. ruled out DM, a1c 5.6. ADD, anxiety/mood disorder, stable off maintenance medications DVT prophylaxis. SCDs re: thrombocytopenia Full code For detailed information on the patient, reported today's H&P note. Text document was generated using [employer] voice recognition software. It may contain grammatical or spelling errors. Kindly contact undersigned for clarification of any documentation item in [place].
[2024-10-04 12:20] LABS: Appearance CSF Clear; CSF Count Tube # 3; CSF Xanthrochromic No xanthochromia; Color CSF Colorless; Red Blood Cell CSF Manual 0 (0); White Blood Cell CSF Manual 0 (0-5)
[2024-10-04] MEDS: FOLIC ACID 1 MG TAB PO SCH (12:31)
[2024-10-04] MEDS: CYANOCOBALAMIN (B-12) 500 MCG TABLET PO SCH (12:31)
[2024-10-04 12:47] LABS: Adenovirus F 40/41 PCR Not Detected (NotDetected); Astrovirus PCR Not Detected (NotDetected); Campylobacter PCR Not Detected (NotDetected); Cryptosporidium PCR Not Detected (NotDetected); Cyclospora cayetanensis PCR Not Detected (NotDetected); Entamoeba histolytica PCR Not Detected (NotDetected); Enteroaggregative E.coli(EAEC) Not Detected (NotDetected); Enteropathogenic E.coli (EPEC) Not Detected (NotDetected); Enterotoxigenic E.coli (ETEC) Not Detected (NotDetected); Giardia lamblia PCR Not Detected (NotDetected); Norovirus GI/GII PCR Not Detected (NotDetected); Plesiomonas shigelloides PCR Not Detected (NotDetected); Rotavirus A PCR Not Detected (NotDetected); Salmonella PCR Not Detected (NotDetected); Sapovirus PCR Not Detected (NotDetected); Shiga-like Toxin E.coli (STEC) Not Detected (NotDetected); Shigella/Enteroinvasive E.coli Not Detected (NotDetected); Vibrio cholerae PCR Not Detected (NotDetected); Vibrio species PCR Not Detected (NotDetected); Yersinia enterocolitica PCR Not Detected (NotDetected)
[2024-10-04 14:02] LABS: Cryptococcus neoformans/ga PCR Not Detected (NotDetected); Cytomegalovirus PCR Not Detected (NotDetected); Enterovirus PCR Not Detected (NotDetected); Escherichia coli K1 PCR Not Detected (NotDetected); Haemophilius influenzae PCR Not Detected (NotDetected); Herpes Simplex Virus 1 PCR Not Detected (NotDetected); Herpes Simplex Virus 2 PCR Not Detected (NotDetected); Human Herpes Virus 6 PCR Not Detected (NotDetected); Human Parechovirus PCR Not Detected (NotDetected); Listeria monocytogenes PCR Not Detected (NotDetected); Neisseria meningitidis PCR Not Detected (NotDetected); Streptococcus agalactiae PCR Not Detected (NotDetected); Streptococcus pneumoniae PCR Not Detected (NotDetected); Varicella Zoster Virus PCR Not Detected (NotDetected)
--- NOTE | 2024-10-04 14:57 | Fluoroscopy Report ---
LUMBAR PUNCTURE UNDER FLUOROSCOPY CLINICAL HISTORY: Headache and neck pain; evaluate for meningitis PROCEDURE: Procedure and risks were explained. Informed consent was obtained. A final timeout was com pleted. The patient was placed prone on the fluoroscopic exam table. The lower lumbar region was prep ped and draped in sterile fashion. 1% lidocaine was utilized for skin anesthesia. Utilizing fluoroscopic guidance, a 22-gauge Sprotte spinal needle was advanced into the intrathecal s pace at the L4-5 disc space level. Fluoroscopic spot images were obtained. Approximately 8 mL of angel r CSF fluid was removed and sent to lab for analysis. The needle was removed and Band-Aid applied. Th e patient tolerated the procedure well. Vital signs will be monitored postprocedure. Fluoroscopy time 6 seconds. Study dosed 5.54 mGy. IMPRESSION: Lumbar puncture as above. Performed, dictated, and signed by Bharat Flores PA-C; to be co-signed by Dr. Nigel Hogue. Electronically signed by: Nigel Hogue M.D. 10/04/2024 4:03 PM
--- NOTE | 2024-10-04 16:08 | Electrocardiogram Report ---
Test Reason : Blood Pressure : */* mmHG Vent. Rate : 85 BPM Atrial Rate : 85 BPM P-R Int : 176 ms QRS Dur : 80 ms QT Int : 358 ms P-R-T Axes : 76 32 65 degrees QTcB Int : 426 ms Normal sinus rhythm Normal ECG No previous ECGs available Confirmed by Barrington Vila ([id number]) on 10/04/2024 4:07:51 PM Referred By: REFERRED SELF Confirmed By: Barrington Vila
[2024-10-05 08:15] LABS: Hematocrit (blood only) 35.1 % (42.0-52.0); Hemoglobin 11.7 g/dl (14.0-18.0); Mean Corpuscular Hemoglobin 30.1 pg (25.0-34.0); Mean Corpuscular Hgb Conc 33.3 g/dL (32.0-36.0); Mean Corpuscular Volume 90.2 fL (80.0-100.0); Mean Platelet Volume 10.1 fL (9.4-12.4); Platelet Count 171 K/uL (130-400); RDW Coefficient of Variation 11.6 % (11.5-14.5); Red Blood Count 3.89 M/uL (4.70-6.10); White Blood Count 5.22 K/ul (4.8-10.8)
[2024-10-05 08:35] LABS: Calcium 8.2 mg/dl (8.6-10.3); Magnesium 2.1 mg/dl (1.7-2.4); Phosphorus 2.1 mg/dl (2.5-4.9); Potassium 3.7 mmol/L (3.5-5.1)
[2024-10-05] MEDS: FERROUS SULFATE 325 MG TAB PO SCH (09:03)
[2024-10-05] MEDS: CHOLECALCIFEROL 25 MCG (1000 UNITS) TAB PO SCH (09:03)
--- NOTE | 2024-10-05 11:43 | Discharge Summary ---
Date of Service October 05, 2024 Admission HPI Per Admitting Provider History obtained from patient and records. Medical history significant for ADD, anxiety/mood disorder. Patient has been ill since last week. Flulike symptoms later followed by dry cough, fatigue, achy chest pain with SOB. Sick kids at home tested positive for flu A. Achy headache symptoms and neck pain. Denies abdominal pain/black/bloody stools/hematuria. No trauma. No known exposure to sick animals/dairy cows/raw milk/wild birds/poultry/agricultural fair attendance/recent travel to an area of known H5N1 animal outbreaks. Patient prescribed outpatient course of Tamiflu for presumptive flu by outpatient teleprovider. Symptoms initially better but worsened yesterday. Patient seen at urgent care center. Directed to ER for evaluation Unsuccessful spinal tap attempt at the ER. 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 Admission Exam Per Admitting Provider GENERAL: Comfortable, pleasant, no respiratory distress SKIN: Normal color, warm HEENT: Partial alopecia, pink palpebral conjunctivae, no ptosis, dry buccal mucosa NECK : Supple, minimal posterior cervical tenderness, no nuchal rigidity CHEST : Decreased breath sounds, no tenderness HEART : RRR, no obvious murmurs ABDOMEN: Some distention, nontender EXTREMITIES : No LE swelling/tenderness, palpable pulses, no other conspicuous deformities noted NEUROLOGIC : Coherent, no facial asymmetry, no other gross focality Principal Diagnosis Headache Discharge Exam GENERAL: Comfortable, pleasant, no respiratory distress SKIN: Normal color, warm HEENT: Partial alopecia, pink palpebral conjunctivae, no ptosis, moist buccal mucosa NECK : Supple, no posterior cervical tenderness, no nuchal rigidity, No LAD CHEST : CTA, no tenderness HEART : RRR, no obvious murmurs ABDOMEN: No distention, nontender EXTREMITIES : No LE swelling/tenderness, palpable pulses, no other conspicuous deformities noted NEUROLOGIC : Coherent, no facial asymmetry, no other gross focality Discharge Data Allergies Allergy/AdvReac Type Severity Reaction Status Date / Time No Known Allergies Allergy Verified 10/04/24 08:24 Consultations 10/04/24 01:29 ED Decision to Admit Stat Ordered Studies 10/03/24 23:21 CT head/brain wo con Stat 10/04/24 02:23 CT angio chest PE protocol Stat 10/04/24 08:00 IR lumbar puncture diagnostic Urgent Hospital Course (1) Headache: Plan 54-year-old male with PMH of ADD, anxiety/mood disorder who has been feeling ill since last week likely from flu [kids at home sick with flu A] who was having gradual improvement in his symptoms until morning of 10/03, went to work and had achy headache at the back, neck ache, upper back pain associated with a fever of 102.4 F in the evening and he decided to present to Urgent care who directed him to the ED for further evaluation. He underwent unsuccessful spinal tap attempt at ED. He also reported on and off diarrhea for last 1 week. Denies any exposure to sick animals/cows/raw milk/wild birds/poultry/agricultural fair attendance. 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 He was managed for the following: Headache: Headache and neck pain symptoms in the setting of a viral URTI symptoms and elevated inflammatory markers Admitting WBC wnl, ESR 88, CRP 2.79, Procal neg. Ruled out meningitis, LP neg, CSF Cx pending, pt advised to follow up on final results during pcp visit within a week time. No sepsis for now, no antibiotic since admission and pt reports significant improvement in his headache/neck ache/backache problem; hence no need for antibiotic. Pt denies problem w/ vision. 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 pedialyte. New onset anemia: OP Hb of 15.2 in 2009 w/ MCV of 84. Hb 12-13 this admission. MCV 90. Iron 24, transferring 175, Folate 16.3, B12 268. Will start him on folate, b12 and iron supplement. Repeat labs in 3 months. Recommend colonoscopy upon dc. 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 Thrombocytopenia: secondary to illness, improving. Hyperglycemia, likely iso acute stress. ruled out DM, a1c 5.6. ADD, anxiety/mood disorder, stable off maintenance medications DVT prophylaxis. SCDs re: thrombocytopenia Full code For detailed information on the patient, reported today's H&P note. Text document was generated using [employer] voice recognition software. It may contain grammatical or spelling errors. Kindly contact undersigned for clarification of any documentation item in question. Patient is being discharged to home with following instructions at the point of discharge: Follow-up with your primary care physician within a week time and likely you will need labs CBC/CMP/magnesium/phosphorus. For concerns of meningitis you underwent lumbar puncture which has been negative so far. Only culture results are pending, we recommend that you follow-up with your PCP office within a week time and follow-up on the final results of the culture reports of CSF and blood. You likely have viral gastroenteritis, recommend that you maintain good fluid intake with Pedialyte solution which can be found [id number]. About 2 to 3 L of fluid intake a day as long as you have diarrhea. As discussed at the bedside, you are also noted to have anemia. You will be discharged on vitamin and iron supplements. You will need repeat anemia testing in 3 months time, coordinate with your PCP office to set up the test. Follow-up with your GI office for your regular colonoscopy. 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 Coordinate with your PCP office to set up the referral. Take your medications as prescribed. Please make sure that you are able to get your medications today by calling your pharmacy before you leave the hospital so that your treatment continuity is not broken. Home Health Attestation I certify that this patient is under my care and that I, or a physicians store assistant working with me, had a face to-face encounter that meets the home health [id number] encounter requirements with this patient. The encounter with the patient was in whole, or in part, for the following medical condition, which is the primary reason for home health care (list medical condition): I certify that, based on my findings, the following services are medically necessary home health services: My clinical findings support the need for the above services because: Further, I certify that my clinical findings support that this patient is homebound (i.e. absences from home require considerable and taxing effort and are for medical reasons or [employer] services or infrequently or of short duration when for other reasons) because: Certification for Home Health Services: Based on the above findings, I certify that this patient is confined to the home and needs intermittent longterm care, physical therapy and/or speech therapy or continues to need occupational therapy. The patient is under my care, and I have initiated the establishment of the plan of care. This patient will be followed by a physician who will periodically review the plan of care. Total Time Total Time Spent Total Time Spent (In Minutes): 35 Discharge Plan Discharge Items Patient Disposition: Home - Self-Care Reason For Visit: CP SOB Discharge Diagnosis: Headache Likely viral gastroenteritis New onset anemia Abnormal CTA chest Activity: Resume your previous activity Non-emergency contact: Primary Care Provider Call non-emergency contact if: you have any medication questions and your symptoms worsen Follow-up/Referrals: Naya Davies MD [Outside Practitioners] - (Date & Time 10/12/2024 9:00 AM Provider: Naya Hill MD [facility] ) Diet: Regular Addtl Attending Provider Instructions: Follow-up with your primary care physician within a week time and likely you will need labs CBC/CMP/magnesium/phosphorus. For concerns of meningitis you underwent lumbar puncture which has been negative so far. Only culture results are pending, we recommend that you follow-up with your PCP office within a week time and follow-up on the final results of the culture reports of CSF and blood. You likely have viral gastroenteritis, recommend that you maintain good fluid intake with Pedialyte solution which can be found [id number]. About 2 to 3 L of fluid intake a day as long as you have diarrhea. As discussed at the bedside, you are also noted to have anemia. You will be discharged on vitamin and iron supplements. You will need repeat anemia testing in 3 months time, coordinate with your PCP office to set up the test. Follow-up with your GI office for your regular colonoscopy. 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 Coordinate with your PCP office to set up the referral. Take your medications as prescribed. Please make sure that you are able to get your medications today by calling your pharmacy before you leave the hospital so that your treatment continuity is not broken. Pending Studies at Discharge: Yes Stand-Alone Forms: [facility], Smoking Cessation Medications and DC Order Prescriptions: New ferrous sulfate 325 mg (65 mg iron) Tablet,Delayed Release (Dr/Ec) 325 mg PO QAM Qty: 30 0RF cyanocobalamin (vitamin B-12) 500 mcg Tablet 500 mcg PO QAM Qty: 30 0RF folic acid 1 mg Tablet 1 mg PO QAM Qty: 30 0RF Continued cholecalciferol (vitamin D3) [Vitamin D3] 25 mcg (1,000 unit) Tablet 25 mcg PO DAILY Discharge Orders: Discharge Order (Routine); Ordered 10/05/24 Ordered By: Spring Moffett Admission Data Admit Date/Time: 10/04/24 02:20 Attending Provider: Spring Moffett Admit Provider: Fawad Chao Primary Care Provider: PCP,NO Other Providers: Fawad Chao
[2024-10-05] MEDS: POT PHOSPHATE MONOBASIC W/ SOD TAB PO SCH (12:57)
--- NOTE | 2024-10-07 16:10 | Emergency Department Note ---
ED Visit Note Visit Date: 10/03/24 HPI: in brief this is a 54 M who presents with fever, neck stiffness. Patient notes that he and his children have been sick with influenza in the past 1 week. He began having similar symptoms as to his children prior to the weekend. He had been prescribed Tamiflu after symptoms began. He notes that a few days later he started feeling somewhat better. Over the past 1 to 2 days he has worsened with repeat of symptoms which include neck stiffness as well as repeated fevers. He notes this is on the sides of his neck. Patient went to urgent care where he was sent in for further evaluation. Physical exam: General: resting comfortably in no acute distress Head: Normocephalic and atraumatic Eyes: Normal inspection, extraocular muscles intact Ear, nose, throat: Normal external exam Neck: Normal range of motion, bilateral areas of soreness to the upper trapezius, Respiratory: lungs clear to auscultation bilaterally Cardiovascular: Regular rate/rhythm, no murmur GI: soft, nontender, no guarding or rebound Extremities: nontender, moves all extremities Neuro: The patient awake and alert, appropriately conversive, no focal deficits, symmetric faces, negative Brudzinski's, negative Kernig sign Skin: Warm, dry, and intact MDM: 54-year-old male presenting for fever and neck stiffness. Patient had symptoms of influenza, with worsening of symptoms, now as muscle stiffness with fever. Sent in by urgent care. Overall patient does appear clinically well, nontoxic appearance, vital signs within normal limits, reassuring lab work, physical exam. No current leukocytosis, no significant anemia. CT imaging and CRP/ESR added due to patient's story. CT imaging negative, inflammatory markers show slight elevations. Discussed at length with patient about risks and benefits of lumbar puncture for rule out. There is low clinical concern but no way to rule out without official procedure. Patient given time to think about this and given migraine cocktail. This does help patient overall. Again discussed risks and benefits of procedure and further workup. Plan for lumbar puncture to rule out risk of meningitis. See procedure note below. Unfortunately, unsuccessful procedure without return of CSF. Patient admitted for further observation and possible procedural planning. Lumbar Puncture Indication: Fever, neck stiffness, rule meningitis Verbal consent was obtained after the risks and benefits were explained, including but not limited to headache, bleeding/clotting, scarring, infection, pain, and bone/joint/nerve damage. At this time, the risks of the procedure are less than the risks of NOT performing the procedure. A time out was taken and the correct patient and site identified. The patient was placed in the upright position and the back was prepped with betadine and draped in the standard fashion. The L4 intervertebral space was identified, anesthetized locally with 1% lidocaine without epinephrine, and the spinal needle was inserted through the skin with the bevel parallel to the dural fibers. The needle was carefully advanced without return of CSF. Procedure attempted in L3 intervertebral space without success
== END 2024-10-05 14:14 | disposition home or self-care (01) ==
LOC: ED 19:14 → EDINP 19:14 → 2W 10-04 04:15